=== PATIENT | male | born 1955 ===

== ENCOUNTER 2016-05-11 15:28 | Emergency (ER) | payer OTHER ==
[2016-05-11] MEDS ORDERED: oxyCODONE/Acetamin 5/325 MG* TAB PO ONE ×2 (16:16→19:47)
--- NOTE | 2016-05-11 17:31 | RAD ---
INDICATION: Trauma. COMPARISON: There are no prior studies available for comparison. TECHNIQUE: Contiguous axial sections were obtained from the skull base through the T3 vertebra. Images were reconstructed in the sagittal and coronal planes. FINDINGS: There is straightening of the cervical spine with decrease in the normal cervical lordosis. The vertebra are otherwise in normal alignment. No fracture is seen. At the C3-C4 level there is mild posterior uncinate process spurring. No significant spinal canal narrowing is seen. Neural foramen appear patent on both sides. At the C4-C5 level there is mild posterior uncinate process spurring associated with a mild broad-based disc bulge. There are mild hypertrophic changes within the facet joint on the right side. No significant spinal canal narrowing is present. There is mild bilateral neural foraminal narrowing. At the C5-C6 level there is moderate posterior uncinate process spurring. This is most prominent posterolaterally toward the left side. This causes mild spinal canal narrowing and mild to moderate neural foraminal narrowing on the right side and moderate to severe neural foraminal narrowing on the left side. At the C6-C7 level there is mild posterior uncinate process spurring. No significant spinal canal narrowing is present. There is mild to moderate bilateral neural foraminal narrowing. There is a comminuted fracture of the right clavicle which is partially visualized on this study. There is a comminuted fracture of the posterolateral right first rib. IMPRESSION: 1. STRAIGHTENING OF THE CERVICAL SPINE, NO EVIDENCE FOR FRACTURE OR SUBLUXATION. 2. COMMINUTED FRACTURE OF THE RIGHT CLAVICLE PARTIALLY VISUALIZED ON THIS STUDY. 3. COMMINUTED FRACTURE OF THE RIGHT POSTEROLATERAL FIRST RIB. 4. MILD TO MODERATE CERVICAL SPONDYLOSIS.
--- NOTE | 2016-05-11 17:33 | RAD ---
INDICATION: Trauma. COMPARISON: There are no prior studies available for comparison. TECHNIQUE: Contiguous axial sections were obtained beginning above the C7 vertebra and scanning through the L1 vertebra. Images were reconstructed in the sagittal and coronal planes. FINDINGS: There is a mild dorsal scoliosis convex toward the right side. The vertebra are otherwise in normal alignment. No fracture is seen. There is no evidence for spinal canal narrowing. There is a fracture of the right posterior first rib. IMPRESSION: 1. MILD DORSAL SCOLIOSIS, NO EVIDENCE FOR FRACTURE OR SUBLUXATION. 2. FRACTURE OF THE RIGHT POSTERIOR FIRST RIB.
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
[2016-05-11] MEDS ORDERED: HYDROmorphone INJ* 1 MG/ML CARPUJECT SYRINGE IM ONE (19:04)
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
[2016-05-11 21:22] VITALS: BP 125/70
== END 2016-05-11 21:20 | disposition home or self-care (01) ==
LOC: ED 15:28
DX: S42.001A Fracture of unspecified part of right clavicle, initial encounter for closed fracture (principal); S42.132A Displaced fracture of coracoid process, left shoulder, initial encounter for closed fracture; S22.31XA Fracture of one rib, right side, initial encounter for closed fracture; V19.9XXA Pedal cyclist (driver) (passenger) injured in unspecified traffic accident, initial encounter; Y93.9 Activity, unspecified; Y92.9 Unspecified place or not applicable
CPT/HCPCS: 71250; 72125; 72128; 96372; 99283; A9270-GY; J1170

== ENCOUNTER → 2016-05-13 08:41 | Day surgery (SDC) | payer OTHER ==
[~2016-05-13 08:41] MED LIST: Buffered Lidocaine 1% SYR 3ML* 3 ML/SYR SYRINGE INTRADERM ONE; Buffered Lidocaine 1% SYR 3ML* 3 ML/SYR SYRINGE ONE; Bupivacaine 0.5% W/EPI SDV* 30 ML VIAL ONE; Dexamethasone IV* 4 MG/ML 1 ML (4 MG) ONE; DiMENhydriNATE IV* 50 MG/ML VIAL IV PUSH PRN; Ketorolac INJ* 30 MG/ML 1 ML VIAL ONE; Lidocaine 2% PF * 5 ML VIAL ONE; Midazolam* 1 MG/ML 2 ML VIAL (2 MG) ONE; Ondansetron INJ* 2 MG/ML VIAL ONE; Propofol* 10 MG/ML 20 ML BTL IV PUSH ONE; ceFAZolin 2 GM PREMIX (*) 2 GM/50 ML BAG IVPB ONE; fentaNYL* 50 MCG/ML 2 ML VIAL (100 MCG VIAL) IV PRN; fentaNYL* 50 MCG/ML 2 ML VIAL (100 MCG VIAL) ONE
[2016-05-13 13:32] VITALS: BP 134/73
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
== END | disposition home or self-care (01) ==
LOC: OREAST 08:41
PROVIDERS: ATTEND Orthopaedic Surgery
DX: S42.021A Displaced fracture of shaft of right clavicle, initial encounter for closed fracture (principal); I10 Essential (primary) hypertension; S22.31XA Fracture of one rib, right side, initial encounter for closed fracture; S42.132A Displaced fracture of coracoid process, left shoulder, initial encounter for closed fracture; V19.3XXA Pedal cyclist (driver) (passenger) injured in unspecified nontraffic accident, initial encounter; Y93.55 Activity, bike riding; Y92.9 Unspecified place or not applicable
CPT/HCPCS: C1713; C1776; J0690; J1100; J1885; J2250; J2405; J2704; J3010

== ENCOUNTER 2016-06-07 06:49 | Emergency (ER) | payer OTHER ==
[2016-06-07] MEDS ORDERED: Cephalexin CAP* 500 MG PO ONE (08:11)
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
[2016-06-07 08:32] VITALS: BP 105/65
== END 2016-06-07 08:42 | disposition home or self-care (01) ==
LOC: ED 06:49
DX: T81.30XA Disruption of wound, unspecified, initial encounter (principal); R60.9 Edema, unspecified; Z87.891 Personal history of nicotine dependence
CPT/HCPCS: 99282; A9270-GY

== ENCOUNTER 2017-10-10 23:10 | Emergency (ER) | payer OTHER ==
[2017-10-11 00:49] LABS: ABS Basophils 0 10^3/ul (0-0.2); ABS Eosinophils 0.1 10^3/ul (0-0.6); ABS Lymphocytes 2.6 10^3/ul (1.0-4.8); ABS Monocytes 0.7 10^3/ul (0-0.8); ABS Nucleated RBC 0 10^3/ul; Eosinophil % 1.8 % (0-6); Hematocrit 44 % (42-52); Hemoglobin 14.6 g/dl (14.0-18.0); Lymphocyte % 34.6 % (25-47); Mean Corpuscular HGB Conc 34 g/dl (31-36); Mean Corpuscular Hemoglobin 27 pg (27-31); Mean Corpuscular Volume 81 fL (80-94); Nucleated Red Blood Cells % 0.1; Platelet Count 235 10^3/ul (150-450); Red Blood Count 5.34 10^6/ul (4.00-5.40); Red Cell Distribution Width 15 % (10.5-15); White Blood Count 7.5 10^3/ul (3.5-10.8)
[2017-10-11 01:06] LABS: EGFR Non-African American 65.3 (>60)
[2017-10-11] MEDS ORDERED: Cephalexin CAP* 500 MG PO ONE (01:49)
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
[2017-10-11 02:06] VITALS: BP 128/84
--- NOTE | 2017-10-11 07:08 | RAD ---
INDICATION: Right clavicular pain. Swelling. History of right clavicular fracture with ORIF COMPARISON: July 03, 2016 TECHNIQUE: AP views were obtained. FINDINGS: There is ORIF of a right clavicular fracture. The appearance unchanged. There is no evidence of hardware failure. The glenohumeral joint is intact. There are subtle findings of calcific tendinitis. IMPRESSION: ORIF RIGHT HUMERAL FRACTURE. NO ACUTE FINDINGS.
== END 2017-10-11 02:04 | disposition home or self-care (01) ==
LOC: ED 23:10
DX: M25.511 Pain in right shoulder (principal); I10 Essential (primary) hypertension; Z88.1 Allergy status to other antibiotic agents; Z87.891 Personal history of nicotine dependence
CPT/HCPCS: 36415; 80053; 83605; 85025; 86140; 99283; A9270-GY